=== PATIENT | female | born 1940 | race Caucasian/White ===

== ENCOUNTER 2018-01-01 10:51 | Day surgery (SDC) | payer MEDICARE, OTHER ==
[~2018-01-01 10:51] MED LIST: CHONDR SU A NA/HYALUR INTRAOC KIT (SURGICARE) ONE; EPINEPHRINE INJ/PF 1 MG/1 ML AMPULE ONE; KETOROLAC TROMETHAMINE 0.45% 4 DROP/0.4 ML DROPERETTE OD PRN; LIDOCAINE 1% INJ-PF (10 MG/ML) 30 ML SDV ONE
[2018-01-01] MEDS: TROPICAMIDE 1% OPH SOLN 3 ML OD PRN ×3 (11:09→11:29)
[2018-01-01] MEDS: CYCLOPENTOLATE 0.2%/PHENYLEPHRINE 1% OPH SOLN 2 ML OD PRN ×3 (11:09→11:29)
[2018-01-01] MEDS: BESIFLOXACIN HCL 0.6% OPH SUSP 5 ML BOTTLE OD PRN ×4 (11:09→11:29)
[2018-01-01] MEDS: TETRACAINE HCL 0.5% OPH SOLN 2 ML OD PRN ×3 (11:10→11:49)
[2018-01-01] MEDS ORDERED: MIDAZOLAM 2 MG/2 ML INJ ONE (11:46)
--- NOTE | 2018-01-01 19:19 | [facility] OPERATIVE REPORT E ---
[facility] Operative Report NAME: HARINDER DOTSON AGE: 77Y DATE OF SURGERY: 01/01/2018 PREOPERATIVE DIAGNOSIS: 1. CATARACT OF THE RIGHT EYE. 2. PUPIL MEIOSIS OF THE RIGHT EYE. POSTOPERATIVE DIAGNOSIS: 1. CATARACT OF THE RIGHT EYE. 2. PUPIL MEIOSIS OF THE RIGHT EYE. OPERATION: Complex cataract extraction with use of the Malyugin ring due to poor pupillary dilation. SURGEON: GONZALEZ GREENE M.D. ANESTHESIA: Topical. PROCEDURE: After obtaining appropriate consent, the patient's right eye was prepped and draped in sterile fashion as well as the surgeon in a sterile manner and cataract surgery was started. First a paracentesis blade was used to make a small side-port incision. Viscoelastic was used to inflate the anterior chamber. Next a 2.4 mm incision was made with the paracentesis blade. A Malyugin ring was inserted due to a very meiotic pupil. This was removed at the end of the case. A continuous capsulorrhexis incision was made using a cystotome and Utrata forceps. Following this hydrodissection was carried out to make the lens fully loose and mobile and it was rotated 90 degrees. Following this, a eyyqum-chw-ncshsit technique was used to phacoemulsify the lens with a CDE of 10.03. The remaining cortex was removed with irrigation/aspiration. Provisc was instilled into the capsular bag to inflate the bag. A SN60WF, 25.5 diopter lens was placed. The remaining viscoelastic material was removed with irrigation/aspiration. Following this, a 10-0 nylon suture was used to close the incision and it was found to be watertight. Vigamox was instilled in the eye and a protective shield was placed over the eye. The patient returned to the postoperative recovery in stable condition. DICTATING PHYSICIAN: GONZALEZ GREENE M.D. [id number] PHY#: [id number] ID: [id number] JOB#: [id number] ACCT: [id number] cc:GONZALEZ GREENE M.D. >
--- NOTE | 2018-01-01 19:20 | [facility] DISCHARGE SUMMARY E ---
[facility] Discharge Summary NAME: HARINDER DOTSON AGE: 77Y ADMITTED: 01/01/2018 DISCHARGED: 01/01/2018 FINAL DIAGNOSES: 1. CATARACT, RIGHT EYE. 2. PUPIL MEIOSIS OF THE RIGHT EYE. HISTORY/CLINIC COURSE: This is a 77-year-old female who underwent cataract extraction, complex, with use of a Malyugin ring due to pupil meiosis, without complication, woke up in postoperative recovery in stable condition. The patient underwent surgery because she was having difficulty reading road signs. Patient is to be on a regular diet. No bending at the waist, no heavy lifting. Patient should use the Besivance, Ilevro, and Durezol at 3 p.m. and 8 p.m., and sleep with a rigid shield. I will see her for 1 day postoperative tomorrow. DICTATING PHYSICIAN: GONZALEZ GREENE M.D. [id number] PHY#: [id number] ID: [id number] JOB#: [id number] ACCT: [id number] cc:GONZALEZ GREENE M.D. >
== END 2018-01-01 12:54 | disposition home or self-care (01) ==
LOC: SC 10:51
PROVIDERS: ATTEND Internal Medicine
PROC: 08RJ3JZ Replacement of Right Lens with Synthetic Substitute, Percutaneous Approach (ICD-10-PCS; principal; 2018-01-01 12:30)
DX: H25.13 Age-related nuclear cataract, bilateral (principal); H57.03 Miosis; M19.90 Unspecified osteoarthritis, unspecified site; I10 Essential (primary) hypertension; K21.9 Gastro-esophageal reflux disease without esophagitis; Z79.899 Other long term (current) drug therapy; Z79.82 Long term (current) use of aspirin
CPT/HCPCS: 66982; J2250; J3490 ×2; A9270; J0171; 142

== ENCOUNTER 2018-01-22 11:52 | Day surgery (SDC) | payer MEDICARE, OTHER ==
[~2018-01-22 11:52] MED LIST changes: -KETOROLAC TROMETHAMINE 0.45% 4 DROP/0.4 ML DROPERETTE OD PRN; +KETOROLAC TROMETHAMINE 0.45% 4 DROP/0.4 ML DROPERETTE OS PRN
[2018-01-22] MEDS: TROPICAMIDE 1% OPH SOLN 3 ML OS PRN ×3 (12:02→12:28)
[2018-01-22] MEDS: CYCLOPENTOLATE 0.2%/PHENYLEPHRINE 1% OPH SOLN 2 ML OS PRN ×3 (12:02→12:28)
[2018-01-22] MEDS: BESIFLOXACIN HCL 0.6% OPH SUSP 5 ML BOTTLE OS PRN ×4 (12:03→13:10)
[2018-01-22] MEDS: TETRACAINE HCL 0.5% OPH SOLN 2 ML OS PRN ×3 (12:04→12:45)
[2018-01-22] MEDS ORDERED: MIDAZOLAM 2 MG/2 ML INJ ONE (12:41)
--- NOTE | 2018-01-22 15:15 | [facility] OPERATIVE REPORT E ---
[facility] Operative Report NAME: HARINDER DOTSON AGE: 77Y DATE OF SURGERY: 01/22/2018 ROOM: PREOPERATIVE DIAGNOSES: 1. CATARACT, LEFT EYE. 2. PUPIL MIOSIS, LEFT EYE. POSTOPERATIVE DIAGNOSES: 1. CATARACT, LEFT EYE. 2. PUPIL MIOSIS, LEFT EYE. OPERATION: Complex cataract extraction with use of a Malyugin ring, due to poor pupillary dilatation, and insertion of intraocular lens implant, left eye. SURGEON: GONZALEZ GREENE M.D. ANESTHESIA: Topical. TISSUE REMOVED OR ALTERED: PROCEDURE: After obtaining appropriate consent, the patient's left eye was prepped and draped in sterile fashion as well as the surgeon in a sterile manner and cataract surgery was started. First a paracentesis blade was used to make a small side-port incision. Viscoelastic was used to inflate the anterior chamber. Next a 2.4 mm incision was made with the paracentesis blade. A continuous capsulorrhexis incision was made using a cystotome and Utrata forceps. Following this hydrodissection was carried out to make the lens fully loose and mobile and it was rotated 90 degrees. Following this, a amyrxr-mji-znifegi technique was used to phacoemulsify the lens with a CDE of 9.62. The remaining cortex was removed with irrigation/aspiration. Provisc was instilled into the capsular bag to inflate the bag. A SN60WF, 24.5 diopter lens was placed. The remaining viscoelastic material was removed with irrigation/aspiration. Following this, a 10-0 nylon suture was used to close the incision and it was found to be watertight. Vigamox was instilled in the eye and a protective shield was placed over the eye. The patient returned to the postoperative recovery in stable condition. Prior to making the capsulorrhexis, a Malyugin ring was inserted, due to poor pupillary dilation. This was removed at the end of the case. DICTATING PHYSICIAN: GONZALEZ GREENE M.D. [id number] PHY#: [id number] ID: [id number] JOB#: [id number] ACCT: [id number] cc:GONZALEZ GREENE M.D. >
--- NOTE | 2018-01-22 15:18 | [facility] DISCHARGE SUMMARY E ---
[facility] Discharge Summary NAME: HARINDER DOTSON AGE: 77Y ADMITTED: 01/22/2018 DISCHARGED: FINAL DIAGNOSES: 1. Cataract, left eye. 2. Pupil miosis of the left eye, requiring a Malyugin ring. HOSPITAL COURSE: This is a 77-year-old female who underwent cataract extraction, complex, of the left eye. Patient underwent surgery because she was having trouble reading road signs and small print. She should be on a regular diet. No bending at her waist, no heavy lifting. She should use Besivance, Ilevro and Durezol at 3:00 p.m. and 8:00 p.m. Sleep with a rigid shield. I will see her for a 1-day postoperative tomorrow. DICTATING PHYSICIAN: GONZALEZ GREENE M.D. [id number] PHY#: [id number] ID: [id number] JOB#: [id number] ACCT: [id number] cc:GONZALEZ GREENE M.D. >
== END 2018-01-22 13:50 | disposition home or self-care (01) ==
LOC: SC 11:52
PROVIDERS: ATTEND Internal Medicine
DX: H25.12 Age-related nuclear cataract, left eye (principal); H57.03 Miosis; Z96.1 Presence of intraocular lens; M19.90 Unspecified osteoarthritis, unspecified site; I10 Essential (primary) hypertension; Z96.649 Presence of unspecified artificial hip joint
CPT/HCPCS: 66982; V2632; J2250; J3490 ×2; A9270; J0171; 142